=== PATIENT | male | born 1930 | race Caucasian/White ===

== ENCOUNTER 2019-10-20 14:55 | Inpatient (IN) | payer MEDICARE, BC ==
[~2019-10-20] VITALS: Ht 172.7 cm; Wt 95.1 kg
[2019-12-12] MEDS ORDERED: AMITIZA24 MCG PO (01:18)
[2019-12-12] MEDS ORDERED: CALCIUM CITRAT950 MG (01:19)
[2019-12-12] MEDS ORDERED: CARDURA4 MG PO (01:20)
[2019-12-12] MEDS ORDERED: PROSCAR 5MG5 MG PO (01:20)
[2019-12-12] MEDS ORDERED: MYSOLINE 250MG250 MG PO (01:21)
[2019-12-12] MEDS ORDERED: NATURAL C500 MG PO (01:22)
[2019-12-12] MEDS ORDERED: FOLIC ACID0.4 MG PO (01:23)
[2019-12-13] VITALS (12 sets, daily range): BP systolic 120–1526; BP diastolic 60–83; PULSE 44–80; TEMP 97.4–98.1
[2019-12-13] MEDS ORDERED: AMITIZA24 MCG PO (05:49)
[2019-12-13] MEDS ORDERED: MYSOLINE 250MG250 MG PO (05:50)
--- NOTE | 2019-12-13 10:17 | NUR ---
PT TO ROOM 327 PER BED WITH REPORT FROM [facility] PACU @1000, PT IS DROWSEY BUT AROUSEBBLE. IV TO PUMP PER ORDERS. DRESSING TO RIGHT KNEE CDI WITH AQUACEL OVER INCISION. SCDS AND CRYOCUFF OVER BILATERAL TEDS.
--- NOTE | 2019-12-13 10:34 | NUR ---
FAMILY AT BEDSIDE ASKING MANY QUESTIONS. APPEARS TO BE VERY INVOLVED WITH PT RECOVERY.
--- NOTE | 2019-12-13 11:51 | NUR ---
LLOYD met with the patient, his (Usha, ph#[phone]), two daughters, son, and [id number] to discuss discharge plan. The patient lives in [place] with his . He reports independence with ADLs and has canes, walkers, and a wheelchair. The patient's PCP is Dr. Abdi Valdes and he receives his medications at [facility]. His reports no difficulties obtaining his meds. The patient does not have advanced directives in EMR, but his reports that he does have them completed. The patient's son reports that they have a copy of the documents in their vehicle and that he can bring a copy into the hospital. His states that she is the patient's DPOA-HC. The patient's reports that the plan is for the patient to go to [place] [facility] upon discharge. LLOYD presented and explained the Patient Choice Form to the patient's and provided her with Medicare.gov's list of SNFs in the [place] area. The patient's chose [facility]. She did not have a second preference at this time. She states that she really wants the patient to go there. Patient Choice Form signed by the patient's and she was provided a copy. LLOYD attempted to contact Asia at [facility]. LLOYD left her a voicemail and faxed over the referral. SW awaiting their screen.
--- NOTE | 2019-12-13 12:40 | NUR ---
First visit from the inorganic chemist. No needs right now.
--- NOTE | 2019-12-13 12:41 | NUR ---
FAMILY LEFT ROOM FOR LUNCH PT AT E 100 % OF MEAL DENIES NAUSEA OR VOMITING. DENIES PAIN AT THIS TIME. VSS.
--- NOTE | 2019-12-13 18:45 | NUR ---
Pt report received at Pt bedside. Pt has spouse present at bedside. Pt is A&Ox4 and is able to make wants/needs known. Call light is noted to be at Pt's side and he has beverages available on the bedside table which is at the bedside and within reach. Pt denies wants/needs at this time.
--- NOTE | 2019-12-13 21:00 | NUR ---
This sign writer letterer or painter was informed that Pt needed pain medication and that the other shift nurse provided this medication to Pt. Will continue to monitor.
--- NOTE | 2019-12-13 23:00 | NUR ---
Pt states that he is continuing to have pain and that he is not sure that he wants to take another narcotic at this time. Pt educated that he has APAP that is being given with his HS meds. Pt states understanding. Pt spouse remains at bedside. Pt is able to reposition himself in bed but requires assistance to move higher up in bed. Pt presents with no s/s of distress. Pt has call light within reach and bedside table has beverages within reach. Will continue to monitor.
--- NOTE | 2019-12-14 02:00 | NUR ---
Pt rounds with this auto service writer noting that cryocuff is needing refill of ice which this auto service writer ensures is refilled. Pt reports that he is having increased pain but is hesitant to take narcotics due to his fear of addiction. Education provided on narcotic pain therapy and addiction risk post surgery. Pt states he will let this auto service writer know if he wishes to have more pain medication. Will continue to monitor. Call light is at Pt side.
--- NOTE | 2019-12-14 02:20 | NUR ---
Pt reports to filomena medical underwriter that he would like to take his norco that he took earlier this afternoon. This medical underwriter replies that this medical underwriter will go obtain the requested pain medication.
--- NOTE | 2019-12-14 04:12 | NUR ---
Pt resting in bed with eyes closed and no s/s of pain noted. Call light at Pt side. No s/s of distress noted. Will continue to monitor.
[2019-12-14 04:41] VITALS: BP 118/60; PULSE 69; TEMP 98.4
--- NOTE | 2019-12-14 06:25 | NUR ---
PT family has arrived and is surrouding Pt's bedside. Pt family has questions regarding Pt's medication regimen and timing of his meds. This wrier reviews MAR with Pt and family and educated them on the medications that are being provided at this time. PT and family state understansing of education. No s/s of distress noted. This continuity writer instructsd AIRCRAFT CHARTER DISPATCHER's who are outside room giving report that PT needs more ice for his Jetstream. Zeb VAZQUEZ acknowledges Pt's need.
[2019-12-14 08:20] LABS: HEMOGLOBIN 11.2 g/dl (13.5-18.0)
[2019-12-14 08:25] LABS: HEMATOCRIT 33.8 % (42.0-52.0)
[2019-12-14 08:26] VITALS: BP 114/46; PULSE 64; TEMP 98.4
--- NOTE | 2019-12-14 09:06 | NUR ---
PATIENT TO [facility] FOR THEAPY. SEVERAL FAMILY MEMBERS ARRIVAL TO OBSERVE. JOANNA TO RONI WILL BE DISCONTINUED AFTER AM THERAPY.
--- NOTE | 2019-12-14 09:57 | NUR ---
LLOYD faxed updates to Asia at [facility]. LLOYD to continue to follow.
[2019-12-14 11:52] VITALS: BP 122/51; PULSE 60; TEMP 99
[2019-12-14 15:56] VITALS: BP 126/61; PULSE 63; TEMP 98.2
--- NOTE | 2019-12-14 19:09 | NUR ---
REPORT TO NIESHA.
[2019-12-14 20:23] VITALS: BP 137/95; PULSE 65; TEMP 98.1
--- NOTE | 2019-12-14 20:51 | NUR ---
Pt currently sitting up in the chair. Pt stated that he is not really having pain until he moves. Pt agreed to ambulate tonight, pain medication was given at this time and will return for walk. Pt currently has ice applied to right knee and SCD's on bilaterally. Pt will call when he needs to get up. Call light is within reach
--- NOTE | 2019-12-14 21:00 | NUR ---
Pt ambulated down the hallway but pt was 2 person assist at this time. Pt gait was not steady. Pt ambulated to the bathroom well. Pt did state that he wasn't having pain at this time. Pain medication was given before we ambulated. Pt had no other concerns at this time. He is currently lying in bed resting.
[2019-12-15 00:19] VITALS: BP 165/79; PULSE 87; TEMP 98.1
--- NOTE | 2019-12-15 02:00 | NUR ---
Pt was offered pain medication at 0030. Pt stated that he was maybe at a one and did not need anything at this time. I did infrom patient that I would check in during the night to make sure he doesn't need anything for pain. He is currently sleeping in bed and he has his cryocuff on his right knee. He did request a warm blanket and since he has received the blanket he has been resting in bed. Call light is within reach and bed is in lowest position.
[2019-12-15 03:45] VITALS: BP 136/70; PULSE 81; TEMP 98.3
--- NOTE | 2019-12-15 03:46 | NUR ---
Pt was sitting up in bed using his urinal. He stated he was trying to take the cryocuff off because it was hurting. I asked him if he wanted to take something for pain at this time he said yes. He was given pain [place] at this time. Cryocuff was refilled with ice but patient wanted to take a little break from the ice. Pt did void in his urinal and the your was yellow and clear. Call light is within reach and his bed is in lowest position.
--- NOTE | 2019-12-15 06:30 | NUR ---
Family at bedside requesting pain medications for patient. Patient rating pain 1/10 at rest-3/10 with movement. States pain will be more with therapy at 0900. Discussed giving pain medication prior to therapy. Cryocuff on with fresh ice. Call light in reach. Will monitor.
[2019-12-15 07:33] VITALS: BP 120/82; PULSE 85; TEMP 97.5
--- NOTE | 2019-12-15 08:00 | NUR ---
PATIENT IS A&O. VSS. RATES PAIN IN RLE AT 4-5 ON PAIN SCALE. GAVE PRN ROXICODONE, TWO TABS BEFORE AM THERAPY. RTK DRESSING IS CD&I WITH AQUACEL. TEDS TO BLE. SCD'S CURRENTLY OFF. POSITIVE PEDAL PULSES TO BLE. PATIENT EAT/DRINK/VOIDING SUFFICENT AMOUNTS. NO C/O N/V. RIGHT FORARM IV TO INT. PATIENT EATING BREAKFAST. AM MEDS GIVEN. HEAD TO TOE ASSESSMENT WNL. NO OTHER NEEDS AT THIS TIME. CALL LIGHT IN REACH.
[2019-12-15 12:41] VITALS: BP 129/67; PULSE 78; TEMP 98
--- NOTE | 2019-12-15 13:35 | NUR ---
Asia, at [facility], reports that they should not have a problem accepting the patient; but that it will just depend on bed availability tomorrow. Asia requests that the [id number] phone call be done today. The physician would be Dr. Valdes (ph#[phone]). LLOYD notified the patient's RN of the above information. LLOYD then met with the patient, patient's , and daughter to update and to discuss having a second preference, in case [facility] [place] [facility] does not have a bed available tomorrow. The patient and his family chose [facility]. LLOYD attempted to contact Ana at [facility]. LLOYD left her a voicemail and faxed over the referral. SW to continue to follow.
--- NOTE | 2019-12-15 15:24 | NUR ---
Laure, at [facility], reports that they would be able to accommodate the patient. She states that they do require an application form to be completed by the patient and family prior to admission though. LLOYD updated the patient and family of this. The patient's and daughter requested that the form be emailed to the daughter, Michelle. Michelle provided LLOYD with her email. LLOYD informed Laure of this. Laure plans to email the application to the patient's daughter, Michelle. LLOYD to continue to follow.
[2019-12-15 17:44] VITALS: BP 144/66; PULSE 84; TEMP 98.6
[2019-12-15 19:59] VITALS: BP 134/64; PULSE 86; TEMP 98
--- NOTE | 2019-12-15 21:32 | NUR ---
Pt is curently lying in bed watching televison. Pt was asked at this time how his pain was doing? Pt stated that he was not having any pain at this time. Pt was able to ambulated down the hallway well. He did well with stand by assitance. He has his call light within reach, he has his cryocuff on at this time.
[2019-12-16] VITALS: BP 125/64; PULSE 86; TEMP 99.2
--- NOTE | 2019-12-16 | NUR ---
Pt is currently sleeping in bed. I did wake him up at this time to see how he was doing on pain. Pt did take his scheduled Tylenol during the night medications but has not complained of any pain tonight. He has been resting well and has been able to void using his urinal during the night. Pt has has his call light within reach and his bed is in lowest position
[2019-12-16 04:19] VITALS: BP 141/67; PULSE 70; TEMP 98
--- NOTE | 2019-12-16 04:53 | NUR ---
Pt has rested well during the night. I have checked in on patient several times just to make sure he was doing ok with pain. Pt stated that he is doing ok and not having pain . He is currently sleeping he sitll has the cryocuff and the SCD's on his legs bilaterally. He has his right lower leg elevated with a pill. Pt does not have any other concerns at this time. Will follw up with patient throughout the shift to make sure pain is managed. Pt has his call light within reach and his bed is in lowest position.
--- NOTE | 2019-12-16 06:45 | NUR ---
Pt is currently lying in bed, family is at bedside. Pt took morning medications well. Pt call light is within reach and bed is in lowest position. Reported off to [facility]
[2019-12-16 08:06] VITALS: BP 157/70; PULSE 99; TEMP 97.7
[2019-12-16 08:16] VITALS: BP 147/81; PULSE 79; TEMP 97.5
--- NOTE | 2019-12-16 08:44 | NUR ---
PT UP TO RECLINER FOR BREAKFAST. PT DENIES NEEDS AT THIS TIME. DRESSING TO RIGHT KNEE CDI. PO PAIN MEDS FOR PAIN EFFECTIVE.
[2019-12-16] MEDS ORDERED: NORCO 325 MG-7.1 TAB PO (09:27)
[2019-12-16] MEDS ORDERED: ASPI325T6 PO (09:27)
[2019-12-16] MEDS ORDERED: ROXICODONE 55 MG/TAB PO (09:28)
--- NOTE | 2019-12-16 09:47 | NUR ---
INT DISCONTINUED PER ORDERS. PT TOLERATED WELL.
--- NOTE | 2019-12-16 09:50 | NUR ---
Asia, at [facility], reports that they do have a bed available and that they are able to accept the patient. The doc-to-doc call was done. LLOYD informed the patient and his family. The patient is to discharge today, 12/15, to [facility]. Transportation is to be by private vehicle, via the patient's daughter. LLOYD also presented and explained the IM form to the patient. The patient verbalized understanding, signed, and he was provided a copy. No additional needs at this time.
--- NOTE | 2019-12-16 10:09 | NUR ---
REPORT CALLED TO [facility] FOR [facility]. PT LEFT WITH FAMILY IN POV. ESCORTED OUT IN WHEEL CHAIR.
== END 2019-12-16 10:00 | disposition swing bed (61) | DRG 470 ==
LOC: JCC 12-13 05:16
PROVIDERS: ADMIT Orthopaedic Surgery
PROC: 0SRC0J9 Replacement of Right Knee Joint with Synthetic Substitute, Cemented, Open Approach (ICD-10-PCS; principal; 2019-12-13 07:30)
DX: M17.11 Unilateral primary osteoarthritis, right knee (principal); M10.9 Gout, unspecified
CPT/HCPCS: A4314; A9284; C1776; J0690; J1100; J1885; J2250; J2704; J7120

== ENCOUNTER 2019-12-07 15:11 | Inpatient (IN) | payer MEDICARE, BC ==
[~2019-12-07] VITALS: Ht 172.7 cm; Wt 93.4 kg
[2019-12-12] MEDS ORDERED: AMITIZA24 MCG PO (01:18)
[2019-12-12] MEDS ORDERED: CALCIUM CITRAT950 MG (01:19)
[2019-12-12] MEDS ORDERED: PROSCAR 5MG5 MG PO (01:20)
[2019-12-12] MEDS ORDERED: CARDURA4 MG PO (01:20)
[2019-12-12] MEDS ORDERED: MYSOLINE 250MG250 MG PO (01:21)
[2019-12-12] MEDS ORDERED: NATURAL C500 MG PO (01:22)
[2019-12-12] MEDS ORDERED: FOLIC ACID0.4 MG PO (01:23)
[2019-12-13] MEDS ORDERED: AMITIZA24 MCG PO (05:49)
[2019-12-13] MEDS ORDERED: MYSOLINE 250MG250 MG PO (05:50)
[2019-12-16] MEDS ORDERED: ASPI325T6 PO (09:27)
[2019-12-16] MEDS ORDERED: NORCO 325 MG-7.1 TAB PO (09:27)
[2019-12-16] MEDS ORDERED: ROXICODONE 55 MG/TAB PO (09:28)
[2020-02-29] VITALS (11 sets, daily range): BP systolic 125–175; BP diastolic 65–95; PULSE 48–98; TEMP 55–98
--- NOTE | 2020-02-29 19:50 | NUR ---
Received report from INGRIS Elizabeth. Pt sitting up in bed eating his dinner tray. Pt has his call light within reach and his bed is in lowest position .
--- NOTE | 2020-02-29 22:30 | NUR ---
Pt has had a very good night. Pt was able to get up and ambulate down the mejia. Pt was given scheduled pain medication and has not complained of any pain. Pt has been tolerating fluids very well. Pt garrett has been draining yellow clear urine. Pt has his call light within reach and his bed is in lowest position .
[2020-03-01 00:29] VITALS: BP 136/78; PULSE 64; TEMP 97.4
[2020-03-01 04:12] VITALS: BP 138/81; PULSE 54; TEMP 97.4
[2020-03-01 06:59] LABS: HEMOGLOBIN 11.6 g/dl (13.5-18.0)
[2020-03-01 07:03] LABS: HEMATOCRIT 35.2 % (42.0-52.0)
--- NOTE | 2020-03-01 07:27 | NUR ---
Reported off to INGRIS Elizabeth. Pt currently eating breakfast in bed. Pt has his call light within reach he has no complaints of pain this morning.
[2020-03-01 08:18] VITALS: BP 137/76; PULSE 67; TEMP 97.6
--- NOTE | 2020-03-01 10:51 | NUR ---
PT WORKED WITH THERAPY UP TO RECLINER FOR AM. MARSHALL CATHETER DISCONTINUED PER ORDERS, PT TOLERATED WELL.
[2020-03-01 11:24] VITALS: BP 99/44; PULSE 59; TEMP 97.4
--- NOTE | 2020-03-01 11:34 | NUR ---
Cylinder Block Mechanic met with patient to discuss discharge planning. Patient lives in [place] with his , Usha (ph#[phone]). Patient's daughter Michelle can be reached at (ph#[phone]). Patient sees Dr. Valdes for primary care and obtains medications from [facility] in [place]. Patient states he also has some medications mailed to him but can't remember the name. Patient reports he is normally independent with ADLS and also has a cane and walker at home. Patient reports his and four children (Michelle, Elvira, Tila, and Bibi) are all designated on [facility]- documents. Copy is located in EMR. Patient states he plans to discharge to [place] [facility] and that he has been there before. LLOYD contacted Asia at [facility] and faxed referral. Patient reports one of his children will provide him with a ride there. LLOYD contacted DIANNA Downing to provide update. [place] advised discharge date will be Friday. LLOYD to continue to follow.
--- NOTE | 2020-03-01 15:29 | NUR ---
Sweeper Brush Maker Machine contacted patient's , Usha to provide update on discharge plan to [facility]. SW to continue to follow.
[2020-03-01 16:00] VITALS: BP 123/71; PULSE 96; TEMP 97.6
[2020-03-01 20:16] VITALS: BP 133/67; PULSE 91; TEMP 98.2
--- NOTE | 2020-03-01 20:35 | NUR ---
Received report from INGRIS Elizabeth. Pt currently sitting up in bed. Pt stated that his pain was ok until he moves it. Pt was given his night medications and his scheduled Tylenol at this time. Pt leg is currently elevated with a pillow from the calf of his leg to his heel. Pt lungs sounds were clear. Pt has been drinking fluids well. Pt did agree to ambulate down the mejia. He will call once he have to use the bathroom and we are going to do both before he goes to bed. Pt has his call light within reach and his bed is in lowest position.
--- NOTE | 2020-03-01 21:48 | NUR ---
Pt is currently lying in bed. Pt was given his scheduled pain medication at this time. Pt went for a walk down to the [facility] desk and came back . Pt was in pain as we made it back. Pt is back in bed and his leg is elevated with pavithra salazar and KACIE and his cryocuff. Pt has his call light within reach and his bed is in lowest position and his alarm is on at this time.
[2020-03-02 00:16] VITALS: BP 131/72; PULSE 86; TEMP 98.3
[2020-03-02 04:00] VITALS: BP 139/70; PULSE 80; TEMP 98.5
--- NOTE | 2020-03-02 07:00 | NUR ---
Reported off to INGRIS Cox. Pt has a really good night. Pt was offered pain meds several time. Pt stated that he was ok. Pt has cryocuff with fresh ice and his left leg is elevated with pillow. Pt has no concerns at this time.
[2020-03-02 07:44] VITALS: BP 128/71; PULSE 101; TEMP 98.9
--- NOTE | 2020-03-02 08:00 | NUR ---
PATIENT IS A&O. VSS. REPORTS PAIN IN LLE IS MANAGED AT THIS TIME. LTK DRESSING IS CD&I WITH AQUCEL. TEDS TO BLE. SCD'S CURRENTLY OFF. POSITIVE PEDAL PULSES TO BLE. PATIENT IS A STAND BY ASSIST WITH WALKER AND PLANS TO DISCHARGE TO [facility]. PATIENT IS EAT/DRINK/VOIDING SUFFICENT AMOUNTS. NO C/O N/V. LEFT FORARM IV TO INT. HEAD TO TOE ASSESSMENT WNL. NO OTHER NEEDS. AM MEDS GIVEN. PATIENT EATING BREAKFAST.
--- NOTE | 2020-03-02 10:53 | NUR ---
Yarn Worker contacted Asia at [facility] and faxed updates. Asia advised they are able to accept clinically. LLOYD obtained report information and placed this on patient's chart. Accepting will be Dr. Gonzalez (ph#[phone]). RN Report (ph#[phone]). LLOYD contacted patient's Usha (cell #[phone]) to provide update. Usha will provide patient transportation upon discharge. SW to continue to follow.
[2020-03-02 11:56] VITALS: BP 133/77; PULSE 90; TEMP 98.3
[2020-03-02 15:55] VITALS: BP 147/74; PULSE 79; TEMP 97.9
[2020-03-02 19:42] VITALS: BP 136/60; PULSE 79; TEMP 98.5
--- NOTE | 2020-03-02 20:35 | NUR ---
Received report from INGRIS Cox. Pt is doing well. He is currently talking with family on the phone. Pt stated that he feels good and agreed to go for a short walk later. Pt has his call light within reach and his bed is in lowest position.
--- NOTE | 2020-03-02 23:14 | NUR ---
Pt currently sleeping in bed. Pt ambulated down to the [facility] desk and back to his room . Pt assessment was all within normal limits. Pt was able to take all night medications well. Pt stated that his pain is way better. Pt has his call light within reach and his bed is in lowet position.
[2020-03-03] VITALS: BP 151/82; PULSE 84; TEMP 98.3
[2020-03-03 04:17] VITALS: BP 132/74; PULSE 82; TEMP 97.8
[2020-03-03] MEDS ORDERED: NORCO 325 MG-7.1 TAB PO (07:15)
[2020-03-03] MEDS ORDERED: ULTRAM 50MG TAB50 MG PO (07:16)
[2020-03-03 07:37] VITALS: BP 149/68; PULSE 77; TEMP 98
--- NOTE | 2020-03-03 09:18 | NUR ---
PATIENT UP TO BATHROOM WITH STANDBY ASSIST. RETURNED TO BED IV DISCONTINUED PER ORDERS.
--- NOTE | 2020-03-03 10:24 | NUR ---
REPORT TO [facility], PT TAKEN TO EXIT IN WHEEL CHAIR.
--- NOTE | 2020-03-03 10:55 | NUR ---
Patient to discharge to [facility] today. LLOYD contacted Asia at [facility] and faxed discharge orders. Per progress note, Dr to call has been completed. Patient's , Usha to provide transportation. LLOYD collaborated with INGRIS Elizabeth and Asia about transport time. LLOYD met with patient and read IM form aloud. Patient verbalized understanding and provided verbal consent. LLOYD placed form in chart and provided copy to patient. No additional needs at this time.
== END 2020-03-03 10:25 | disposition swing bed (61) | DRG 470 ==
LOC: JCC 02-01 07:30
PROVIDERS: ADMIT Orthopaedic Surgery
PROC: 0SRD069 Replacement of Left Knee Joint with Oxidized Zirconium on Polyethylene Synthetic Substitute, Cemented, Open Approach (ICD-10-PCS; principal; 2020-02-29 11:15)
DX: M17.12 Unilateral primary osteoarthritis, left knee (principal); N40.0 Benign prostatic hyperplasia without lower urinary tract symptoms; M10.9 Gout, unspecified; G25.0 Essential tremor; M48.00 Spinal stenosis, site unspecified; Z96.651 Presence of right artificial knee joint
CPT/HCPCS: A4314; C1776; J0690; J1100; J2250; J2405; J2704; J7120